=== PATIENT | female | born 1960 | race African-American/Black ===

== ENCOUNTER 2017-03-31 16:51 | Emergency (ER) | payer MEDICAID, OTHER, SELFPAY ==
[~2017-03-31] VITALS: Ht 147.3 cm; Wt 68.3 kg
[2017-03-31 16:55] VITALS: BP 139/80
[2017-03-31] MEDS ORDERED: SODIUM CHLORIDE FLUSH 10ML SYR IVF ONE (17:30)
[2017-03-31] MEDS ORDERED: ONDANSETRON 2MG/ML, 2ML IVPush ONE (17:30)
[2017-03-31] MEDS ORDERED: SODIUM CHLORIDE 0.9% 1,000ML IVBOLUS ONE (17:30)
[2017-03-31] MEDS ORDERED: ONDANSETRON 2MG/ML, 2ML ONE (17:55)
[2017-03-31 18:05] LABS: ASPARTATE AMINO TRANSFERASE 26 U/L (15-37); BLOOD UREA NITROGEN 21 mg/dL (7-18)
[2017-03-31] MEDS ORDERED: CEFTRIAXONE PMX 1GM/50ML 50 ML ONE (18:55)
[2017-03-31] MEDS ORDERED: CEFTRIAXONE PMX 1GM/50ML 50 ML IV ONE (19:00)
== END 2017-03-31 19:45 | disposition home or self-care (01) ==
LOC: ED 19:39
DX: R11.2 Nausea with vomiting, unspecified (principal); E86.0 Dehydration; Z90.710 Acquired absence of both cervix and uterus
CPT/HCPCS: 36415; 80053; 81001; 83690; 84703; 85025; 87086; 93005; 96361; 96365; 96375; 99285; J0696; J2405; J7030